=== PATIENT | female | born 1985 | race Two or more races ===

== ENCOUNTER → 2018-02-22 | Outpatient (CLI) | payer OTHER ==
--- NOTE | 2018-02-22 11:17 | RAD ---
DATE: 02/22/2018 EXAM: Bilateral digital mammograms HISTORY: Left breast lump, breast implants COMPARISON: None available This study was interpreted with the benefit of Computerized Aided Detection (CAD). The breast parenchyma is dense, which could reduce the sensitivity of mammography. Breast parenchyma level density D. FINDINGS: Routine and implant exclusion views of both breasts were obtained. The fibroglandular tissues are extremely dense and heterogeneous. Bilateral breast implants are in place. No breast mass is identified. No suspicious microcalcifications are evident. Left breast ultrasound, 02/22/2018: The upper outer quadrant of the left breast was carefully scanned. The area of reported clinical concern was at the 1:00 location. At this level, approximately 4 cm from the nipple, a 7 x 5 x 11 mm oval-shaped hypoechoic nodule was identified. Its margins are smooth. There are low level internal echoes. There is no posterior acoustic enhancement or shadowing. No internal color flow is evident. It is wider than tall. 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 The patient also described an area of palpable concern at the 2:00 location approximately 8 cm from the nipple. We carefully scanned this region as well as the remainder of the upper outer quadrant of the left breast and no additional abnormality was detected. IMPRESSION: 1. No mammographic evidence of malignancy in either breast. 2. Small 1:00 breast nodule on the left with sonographic features suggesting a fibroadenoma. Clinical surveillance and sonographic follow-up beginning in 6 months is suggested to confirm stability. BI-RADS CATEGORY: 3 PROBABLY BENIGN FINDING(S)-SHORT INTERVAL FOLLOW-UP SUGGESTED RECOMMENDED FOLLOW-UP: 6M 6 MONTH FOLLOW-UP PQRS compliance statement: Patient information was entered into a reminder system with a target due date for the next mammogram. Mammography is a sensitive method for finding small breast cancers, but it does not detect them all and is not a substitute for careful clinical examination. A negative mammogram does not negate a clinically suspicious finding and should not result in delay in biopsying a clinically suspicious abnormality. "Our facility is accredited by the [employer] Mammography Program."
== END | disposition home or self-care (01) ==
LOC: MAMMO 09:11
PROVIDERS: ATTEND Nurse Practitioner Family
DX: N63.21 Unspecified lump in the left breast, upper outer quadrant (principal)
CPT/HCPCS: 76641; 77066